=== PATIENT | female | born 1980 | race Caucasian/White ===

== ENCOUNTER 2017-08-21 21:02 | Emergency (ER) | payer OTHER ==
[2017-08-21] MEDS: MORPHINE SULFATE 2 MG/ML INJ IM (22:26)
== END 2017-08-21 23:05 | disposition home or self-care (01) ==
LOC: NEPD 21:02
DX: S42.301A Unspecified fracture of shaft of humerus, right arm, initial encounter for closed fracture (principal); J45.909 Unspecified asthma, uncomplicated; Z86.718 Personal history of other venous thrombosis and embolism
CPT/HCPCS: 73060; 96372; 99284-25

== ENCOUNTER 2017-08-29 05:07 | Observation (INO) | payer OTHER ==
[~2017-08-29] VITALS: Ht 160 cm; Wt 83.5 kg
[~2017-08-29 05:07] MED LIST: HYDR-3516 PO; IBUP1TAB5 PO
[2017-08-29] MEDS ORDERED: ceFAZolin 2 GM PREMIX 50 ML IV SCH (05:45)
[2017-08-29] MEDS ORDERED: VANCOMYCIN 1000 MG/NS 250 ML (for <70 kg) IV SCH ×2 (05:45)
[2017-08-29] MEDS ORDERED: CHLORHEXIDINE GLUCONATE 4% SOLN 120 ML BTL TOPICAL SCH (05:45)
[2017-08-29] MEDS ORDERED: POVIDONE IODINE 5% (ANTISEPSIS KIT) 4 APPLICATIONS EACH NARE PRN (05:45)
[2017-08-29] MEDS ORDERED: LACTATED RINGER'S 1000 ML IV PRN (05:45)
[2017-08-29] MEDS ORDERED: CHLORHEXIDINE GLUCONATE 2 % 1 PACK (2 CLOTHS) TOPICAL PRN (05:45)
[2017-08-29] MEDS ORDERED: SODIUM CHLORID 0.9% 500 ML IV PRN (05:45)
[2017-08-29] MEDS ORDERED: METOPROLOL TARTRATE 25 MG TAB PO PRN (05:45)
[2017-08-29] MEDS ORDERED: MORPHINE SULFATE 4 MG/ML INJ ONE (07:19)
[2017-08-29] MEDS ORDERED: GENTAMICIN SULFATE 80 MG/2 ML VIAL ONE (08:00)
[2017-08-29] MEDS ORDERED: HYDR-3583 PO (08:20)
[2017-08-29] MEDS ORDERED: ERGOCALCIFEROL (VIT D2) 50,000 UNIT CAP PO SCH (10:00)
[2017-08-29] MEDS ORDERED: diphenhydrAMINE HCL 25 MG CAP PO PRN (10:00)
[2017-08-29] MEDS ORDERED: MORPHINE SULFATE 4 MG/ML INJ IV PUSH PRN (10:00)
[2017-08-29] MEDS ORDERED: ONDANSETRON HCL 4 MG/2 ML VIAL IVP PRN (10:00)
--- NOTE | 2017-08-29 10:03 | PD.OP ---
cc: Ulises Nova MD Operative Report Date of Surgery: Aug 29, 2017 Preoperative Diagnosis: Displaced right humerus distal shaft fracture Postoperative Diagnosis: Procedure: Open reduction internal fixation right distal humerus shaft fracture Anesthesia: Gen. Surgeon: Ulises Nova Spinning Machine Operator(s): SHAREE Mojica PA-C The surgical procedure was assisted by my physician equal opportunity assistant. My P.A. presence was necessary throughout this case for the manipulation and positioning of the surgical extremity. My P.A. was assisting me throughout the duration of this procedure. The skill set of a physician equal opportunity assistant was medically necessary to complete this procedure. During the surgical case the surgical services asst was working at the back table and the physician equal opportunity assistant was directly assisting me. Operation and Findings: Patient was seen and evaluated preoperatively. Treatment options were discussed regarding right humerus fracture including surgical and nonsurgical treatments. After detailed discussion of risk and benefits of procedure patient wishes to proceed with surgery. Risks of surgery include bleeding, infection, nonunion, malunion, radial nerve injury, painful hardware, loss of motion of shoulder and elbow, weakness and numbness of arm, as well as medical competitions including blood clots stroke and . Patient was brought to operating room and placed on the OR table. GETA was administered by anesthesiologist. Patient was positioned in lateral decubitus position. Extremities were well-padded. Axillary roll was placed. Operative arm and shoulder were prepped with alcohol followed by Hibiclens and draped usual sterile fashion. Timeout procedure was performed. IV antibiotics were given prior to incision. A standard posterior approach was utilized. Subcutaneous tissues was dissected with Bovie. The triceps muscle was split midline. Distally the lateral border of the triceps was elevated. The radial nerve was identified and protected throughout the procedure. The nerve was intact. The fracture was identified. Soft tissue was removed from the fracture site. Fracture site was cleaned with curettes. At this point the fracture was reduced using fracture tenaculums. Multiplanar fluoroscopy confirmed excellent of fracture. There were 3 large fragments. Each piece keyed together well. Multiple 2.7 cortical lag screws were placed to compress the fracture fragments. A Synthes 3.5 plate was contoured to fit the humerus. Plate was provisionally held the bone with K wires. 3.5 cortical screws were placed on each side of the fracture. The screws were placed to add compression to fracture. Multiple screws were placed in each side of the fracture. All screws were predrilled and premeasured for appropriate length. Final fluoroscopy revealed excellent alignment of fracture with well-placed hardware. Incision was thoroughly irrigated. Fascia was closed with #1 Vicryl, subcutaneous tissues closed with 3-0 Vicryl, and skin was closed with antonio. Sterile dressings were applied. Needle and sponge counts were correct. Patient was placed into a sling, and then transferred to recovery room in stable condition Ulises Nova MD Aug 29, 2017 10:03
[2017-08-29] MEDS ORDERED: DO NOT ADM ANY ANTICOAGULANT DRUGS PRN (10:28)
[2017-08-29] MEDS ORDERED: MIDAZOLAM HCL 2 MG/2 ML VIAL ONE (10:29)
[2017-08-29] MEDS ORDERED: *morphine SULFATE 10 MG/ML PERIprocedure ONLY ONE (10:34)
[2017-08-29] MEDS ORDERED: HYDROmorphone HCL PF 2 MG/ML VIAL ONE (10:54)
[2017-08-29 12:00] VITALS: BP 139/72; PULSE 76; RESP 18; TEMP 95.5; O2SAT 100
[2017-08-29] MEDS ORDERED: PROPOFOL 200 MG/20 ML AMP IV ONE (12:00)
[2017-08-29] MEDS ORDERED: ROCURONIUM INJ 50 MG/5 ML SYRINGE IV PUSH ONE (12:00)
[2017-08-29] MEDS ORDERED: ONDANSETRON HCL 4 MG/2 ML VIAL IV ONE (12:00)
[2017-08-29] MEDS ORDERED: LIDOCAINE HCL 1% PF 5 ML SYRINGE OTHER ONE (12:00)
[2017-08-29] MEDS ORDERED: DEXAMETHASONE SOD PHOS 4 MG/ML VIAL IV ONE (12:00)
[2017-08-29] MEDS ORDERED: ESMOLOL HCL 100 MG/10 ML VIAL IV ONE (12:00)
[2017-08-29] MEDS ORDERED: LACTATED RINGER'S 1000 ML INJ 2,000 ML IV ONE (12:00)
[2017-08-29] MEDS: ACETAMINOPHEN/HYDROcodone 325 MG/10 MG TAB PO PRN ×3 (12:22→18:27)
[2017-08-29] MEDS: CALCIUM/VITAMIN D 250 MG/125 U TAB PO SCH ×2 (12:22→15:38)
--- NOTE | 2017-08-29 15:17 | RADRPT ---
EXAM DATE/TIME: 08/29/2017 09:44 [facility] COMPARISON: HUMERUS RIGHT (MIN 2VWS), August 21, 2017, 22:10. INDICATIONS : Right humerus open reduction internal fixation. MEDICAL HISTORY : None. SURGICAL HISTORY : None. ENCOUNTER: Initial ACUITY: 1 day PAIN SCORE: Non-responsive. LOCATION: Right humerus FINDINGS: 5 magnified C-arm spot views are centered over the humerus and labeled right. These show an orthopedi c plate with multiple anchoring screws along the dorsal cortex of the mid and distal humerus. Good al ignment of the fracture of the mid to distal diaphysis is observed. The anchoring screws involving th e capitellum are contained within the cortical confines of the capitellum. CONCLUSION: Intraoperative images as detailed above. Turner Blankenship Jr., MD on August 29, 2017 at 15:12 Board Certified Radiologist. This report was verified electronically.
[2017-08-29] MEDS: ceFAZolin 2 GM PREMIX 50 ML IV SCH (15:38)
[2017-08-29 15:39] VITALS: BP 137/87; PULSE 92; RESP 17; TEMP 97.3; O2SAT 98
[2017-08-29 17:45] VITALS: O2SAT 98
[2017-08-29 20:30] VITALS: BP 117/76; PULSE 96; RESP 17; TEMP 97.8; O2SAT 97
[2017-08-29] MEDS: DOCUSATE SODIUM 50 MG/SENNA 8.6 MG TAB PO SCH (21:00)
[2017-08-30] MEDS: ceFAZolin 2 GM PREMIX 50 ML IV SCH ×2 (00:07→09:24)
[2017-08-30] MEDS: ACETAMINOPHEN/HYDROcodone 325 MG/10 MG TAB PO PRN ×4 (00:07→15:05)
[2017-08-30 00:32] VITALS: BP 118/64; PULSE 100; RESP 17; TEMP 98.2; O2SAT 97
[2017-08-30 04:15] VITALS: BP 124/79; PULSE 91; RESP 16; TEMP 97.3; O2SAT 100
--- NOTE | 2017-08-30 06:33 | PD.ORT.PN ---
Subjective Subjective Remarks POD 1 s/p ORIF right distal humeral shaft fx doing well. reports pain but controlled. out of bed and ambulating to bathroom with minimal difficulty Objective Vitals Vital Signs Date Time Temp Pulse Resp B/P (MAP) Pulse Ox O2 Delivery O2 Flow Rate FiO2 08/30/17 04:15 97.3 91 16 124/79 (94) 100 08/30/17 00:32 98.2 100 17 118/64 (82) 97 08/29/17 20:30 97.8 96 17 117/76 (90) 97 08/29/17 17:45 98 21 08/29/17 15:39 97.3 92 17 137/87 (104) 98 08/29/17 12:00 95.5 76 18 139/72 (94) 100 08/29/17 11:45 77 12 128/77 (94) 97 Room Air 08/29/17 11:30 79 12 129/75 (93) 98 Room Air 08/29/17 11:15 71 12 125/74 (91) 97 Room Air 08/29/17 11:00 76 15 121/67 (85) 97 Room Air 08/29/17 10:45 81 15 131/76 (94) 97 Room Air 08/29/17 10:30 83 14 129/78 (95) 95 Room Air 08/29/17 10:27 97.5 93 16 130/77 (94) 100 Room Air I/O 08/29/17 08/29/17 08/29/17 08/30/17 08/30/17 08/30/17 07:00 15:00 23:00 07:00 15:00 23:00 Intake Total 2000 ml 770 ml Output Total 100 ml Balance 1900 ml 770 ml Intake Oral 720 ml IV Total 2000 ml 50 ml Output Estimated Blood Loss 100 ml # Voids 2 # Bowel Movements 0 Objective Remarks RUE: dressings clean and dry. intact. NVI with good extension fo wrist/fingers. full sensation to median/ulnar nerve distribution Assessment & Plan Assessment and Plan 1) Right Distal Humeral Shaft Fx s/p ORIF - POD 1 -NWB -maintain sling -pendulums 3x/day -daily dressing changes POD 2 -CM for HHC -plan for DC home today with HHC -f/u with Rud[facility] or PA in 2 weeks Nathaniel Lorenz/[employer] PA Aug 30, 2017 06:33
[2017-08-30] MEDS ORDERED: VITA500012 PO (06:34)
[2017-08-30] MEDS ORDERED: CALCTAB19 PO (06:34)
[2017-08-30] MEDS ORDERED: VITA2000 PO (06:34)
--- NOTE | 2017-08-30 06:36 | HHI.FF ---
Face to Face Verification Diagnosis: (1) Fracture, humerus closed, shaft Occupational Therapy Right UE Weight Bearing: Non WB Right UE Range of Motion: Pendular Nursing Nursing: Dressing changes (teach and supply dressing changes) Dressing Changes: Daily dressing change, Xeroform, Coverderm/Primapore I have seen patient Treasure Nagy on 08/30/17. My clinical findings support the need for the requested home health care services because: Ltd mobility - disease progression I certify that my clinical findings support that this patient is homebound because: Post-op weakness Nathaniel Lorenz/First Hemant WESLEY Aug 30, 2017 06:36
--- NOTE | 2017-08-30 06:40 | HHI.DS ---
Discharge Summary Admission Date Aug 29, 2017 at 09:56 Discharge Date: Aug 30, 2017 Admitting Diagnosis Right Distal Humeral Shaft Fx Diagnosis: (1) Fracture, humerus closed, shaft Diagnosis: Principal ICD Codes: S42.309A - Unspecified fracture of shaft of humerus, unspecified arm , initial encounter for closed fracture Procedures ORIF Right Distal Humeral Shaft PE at Discharge RUE: dressings clean and dry. intact. NVI with good extension fo wrist/fingers. full sensation to median/ulnar nerve distribution Hospital Course Patient admitted from outpatient for ORIF of right humerus after suffering a fracture of right humerus approx 1 week ago. Tolerated procedure well. Admitted to N. Was out of bed POD0 and ambulating to bathroom with minimal discomfort. Pain controlled with norco. POD 1 patient was hemodynamically stable, neruo intact, pain controlled, and fit for discharge home with home healthcare. She will remain NWB on right arm. She will come out of sling 3x/ day for pendular exercises. She will have daily dressing changes with xeroform and primapore. she will follow up with Lexi or [facility] in 2 weeks. Pt Condition on Discharge: Good Discharge Disposition: Disch w/ Home Health Serv Discharge Instructions Diet Instructions: As Tolerated, No Restrictions Activities You Can Perform: Non Weight Bearing Follow up Referrals: Appointment for Follow Up - 2 Weeks @ [facility] with [facility] - 2 Weeks @ [facility] with Ulises Galdamez MD New Medications: Calcium Carbonate-Vitamin D (Calcium 600+D 200) 600-200 Mg-Unit Tab 1 TAB PO BID for Nutritional Supplement, #60 TAB 0 Refills Cholecalciferol (Vitamin D3) 2,000 Unit Cap 2000 UNITS PO DAILY for Nutritional Supplement, #60 CAP 0 Refills Ergocalciferol (Ergocalciferol) 50,000 Unit Cap 10088 UNITS PO Q7D for Nutritional Supplement, #8 CAP Hydrocodone-Acetaminophen (Hydrocodone-Acetaminophen) 10-325 mg Tab 1 TAB PO Q4H PRN for PAIN, #60 TAB 0 Refills Discontinued Medications: Hydrocodone-Acetaminophen (Hydrocodone-Acetaminophen) 5-325 mg Tab 1 TAB PO Q6H PRN for PAIN, #20 TAB 0 Refills Ibuprofen (Ibuprofen) 400 Mg Tab 400 MG PO Q8H PRN for PAIN SCALE 1 TO 10, TAB 0 Refills Nathaniel Lorenz/[employer] PA Aug 30, 2017 06:40
[2017-08-30 08:00] VITALS: BP 111/67; PULSE 89; RESP 18; TEMP 98.1; O2SAT 99
[2017-08-30] MEDS ORDERED: CHOLECALCIFEROL (VIT D3) 1000 UNIT TAB PO SCH (09:00)
[2017-08-30] MEDS: CALCIUM/VITAMIN D 250 MG/125 U TAB PO SCH ×2 (09:25→15:05)
[2017-08-30] MEDS: DOCUSATE SODIUM 50 MG/SENNA 8.6 MG TAB PO SCH (09:25)
[2017-08-30] MEDS ORDERED: INFLUENZA VIRUS VACCINE (QUADRIVALENT) 0.5 ML SYR IM ONE (10:00)
[2017-08-30 10:19] VITALS: O2SAT 99
[2017-08-30 11:51] VITALS: BP 114/68; PULSE 87; RESP 18; TEMP 98.1; O2SAT 98
== END 2017-08-30 16:41 | disposition home or self-care (01) ==
LOC: HSDC 05:07 → N06A 09:56
PROVIDERS: ADMIT Orthopaedic Surgery Orthopaedic Trauma; ATTEND Orthopaedic Surgery Orthopaedic Trauma
DX: S42.301A Unspecified fracture of shaft of humerus, right arm, initial encounter for closed fracture (principal); Z23 Encounter for immunization
CPT/HCPCS: 01740; 24515; 73060; 76000; 90471; 90686; 96365; 96366; 97110; 97166; C1713; G0378; G8987; G8988; J0690; J1100; J1170; J1580; J2250; J2270; J2405; J3010; J3370; J7050; J7120; G0008; Q2038

== ENCOUNTER 2017-10-06 16:52 | Emergency (ER) | payer OTHER ==
[~2017-10-06 16:52] MED LIST changes: +CALCTAB19 PO; -HYDR-3516 PO; +HYDR-3583 PO; -IBUP1TAB5 PO; +VITA2000 PO; +VITA500012 PO
[2017-10-06 17:21] VITALS: BP 111/54; PULSE 77; RESP 18; TEMP 98.4
--- NOTE | 2017-10-06 18:38 | PD ---
HPI Chief Complaint: Pain: Acute or Chronic Time Seen by Provider: 17:58 Travel History International Travel<30 days: No Contact w/Intl Traveler<30days: No Traveled to known affect area: No History of Present Illness HPI This is a 37-year-old female here with right upper extremity pain. Patient had ORIF of the right humerus done by Dr. Nova in late August of this year. She recently returned to work last week and has been unable to wear the sling as directed. She is requesting a note for work stating that she must wear the sling as directed by Dr. Nova. She does have a follow-up appointment with her orthopedics next week. She denies fever or chills. She denies increasing pain, swelling or altered sensation of the extremity. She believes the heavy lifting and repetitive motion is not good for her arm. Didn't severity mild to moderate. Aggravated by range of motion and heavy lifting. Relieved with rest. PFSH Past Medical History Asthma: Yes Blood Disorders: Yes (DVT IN LEFT LEG 2005) Anxiety: Yes Depression: Yes Heart Rhythm Problems: No Cancer: No Cardiovascular Problems: No High Cholesterol: No Chemotherapy: No Chest Pain: No Congestive Heart Failure: No COPD: No Diabetes: No Deep Vein Thrombosis: Yes Endocrine: No Genitourinary: No Hepatitis: No Hiatal Hernia: No Immune Disorder: No Musculoskeletal: Yes (CHRONIC LUMBAR PAIN L4-5, c3-c7, OA) Neurologic: No Psychiatric: Yes Reproductive: No Respiratory: Yes (ASTHMA) Radiation Therapy: No Sleep Apnea: No Thyroid Disease: No : 1 Para: 1 Tubal Ligation: Yes Past Surgical History AICD: No Body Medical Devices: CURRENT SX ORIF R HUMERUS Gynecologic Surgery: Yes (TUBAL LIGATION) Joint Replacement: No Pacemaker: No Social History Alcohol Use: No Tobacco Use: Yes ("ONCE IN A BLUE [place]AMAN") Substance Use: No Allergies-Medications (Allergen,Severity, Reaction): Coded Allergies: No Known Allergies (Verified Allergy, Unknown, 10/06/17) Reported Meds & Prescriptions Reported Meds & Active Scripts Active Calcium 600+D 200 (Calcium Carbonate-Vitamin D) 600-200 Mg-Unit Tab 1 Tab PO BID Vitamin D3 (Cholecalciferol) 2,000 Unit Cap 2,000 Units PO DAILY Ergocalciferol 50,000 Unit Cap 50,000 Units PO Q7D Hydrocodone-Acetaminophen 10-325 mg Tab 1 Tab PO Q4H PRN Review of Systems Except as stated in HPI: all other systems reviewed are Neg General / Constitutional: No: Fever Physical Exam Narrative GENERAL: Alert and well-appearing 37-year-old SKIN: Warm and dry. HEAD: Normocephalic. EYES: No injection or drainage. NECK: Supple MUSCULOSKELETAL: No cyanosis, or edema. Right upper extremity: Well-healed surgical scar extending the length of the humerus. No warmth, erythema, swelling of the extremity. Patient can flex and extend the elbow and wrist. 2 + brachial and radial pulse. Normal sensation in the hand. Brisk cap refill. Data Data Last Documented VS Vital Signs Date Time Temp Pulse Resp B/P (MAP) Pulse Ox O2 Delivery O2 Flow Rate FiO2 10/06/17 17:21 98.4 77 18 111/54 (73) MDM Medical Decision Making Medical Screen Exam Complete: Yes Emergency Medical Condition: Yes Differential Diagnosis Postsurgical pain, post surgical infection unlikely, humeral fracture Narrative Course This is a 37-year-old female here with continued pain in the right upper extremity status post ORIF of the humerus in late August. Denies recent injury or trauma. She returned to work this week and reports that range of motion and heavy lifting have aggravated the pain in the arm. She denies fever chills. There is no evidence of infection or DVT in the right upper extremity. She is not currently wearing the sling as directed by Dr. Nova. She was encouraged to wear the sling. Continue OTC NSAIDs. Keep her follow-up appointment with Dr. Nova. She'll be given a work note stating she needs to wear the sling as directed by her orthopedist Diagnosis Primary Impression: Fracture, humerus closed, shaft Qualified Codes: S42.301D - Unspecified fracture of shaft of humerus, right arm, subsequent encounter for fracture with routine healing Referrals: Ulises Nova MD Departure Forms: Tests/Procedures, Work Release Special Instructions: Must wear sling at all times until cleared by orthopedic Additional Instructions: With a sling as directed. [id number] ibuprofen and Tylenol. Keep your follow-up appointment with Dr. Nova. And if he had new or worsening symptoms Disposition: DISCHARGE HOME Condition: Stable Renu Bryant Oct 06, 2017 18:38
[2017-10-06] MEDS ORDERED: KETOROLAC TROMETHAMINE 60 MG/2 ML (IM) VIAL IM ONE (18:45)
== END 2017-10-06 19:08 | disposition home or self-care (01) ==
LOC: NEPK 16:52
DX: M79.601 Pain in right arm (principal); S42.301D Unspecified fracture of shaft of humerus, right arm, subsequent encounter for fracture with routine healing; X58.XXXD Exposure to other specified factors, subsequent encounter; J45.909 Unspecified asthma, uncomplicated; Z72.0 Tobacco use; Z02.79 Encounter for issue of other medical certificate
CPT/HCPCS: 96372; 99283; J1885

== ENCOUNTER 2017-11-16 01:14 | Emergency (ER) | payer OTHER ==
[~2017-11-16] VITALS: Ht 157.5 cm; Wt 82.0 kg
[2017-11-16 01:27] VITALS: BP 134/76; PULSE 97; RESP 18; TEMP 98.5; O2SAT 100
--- NOTE | 2017-11-16 02:40 | RADRPT ---
EXAM DATE/TIME: 11/16/2017 02:15 [facility] COMPARISON: No previous studies available for comparison. INDICATIONS : Left hand pain and swelling with no known injury. MEDICAL HISTORY : None. SURGICAL HISTORY : ORIF rt humerus ENCOUNTER: Initial ACUITY: 2 days PAIN SCORE: 10/10 LOCATION: Left hand FINDINGS: Three view examination of the left hand demonstrates no soft tissue swelling, dislocation, or fractur e. The carpal bones appear intact. The interphalangeal and metacarpophalangeal joints are intact. Bony mineralization is normal. CONCLUSION: 1. There is no evidence of acute fracture. Derrick Mirza MD on November 16, 2017 at 2:38 Board Certified Radiologist. This report was verified electronically.
[2017-11-16] MEDS ORDERED: CEPH-460 PO (03:06)
[2017-11-16] MEDS ORDERED: BACT800T5 PO (03:06)
--- NOTE | 2017-11-16 03:06 | PD ---
HPI Chief Complaint: Injury Time Seen by Provider: 02:35 Travel History International Travel<30 days: No Contact w/Intl Traveler<30days: No Traveled to known affect area: No History of Present Illness HPI 37-year-old female complains of pain in the left hand for about 3 nights. She reports no real relief from ice packs or heat packs. No benefit from 400 mg ibuprofen. Sleeping has been difficult because of the hand pain. No fever. 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 PFSH Past Medical History Asthma: Yes Blood Disorders: Yes (DVT IN LEFT LEG 2005) Anxiety: Yes Depression: Yes Heart Rhythm Problems: No Cancer: No Cardiovascular Problems: No High Cholesterol: No Chemotherapy: No Chest Pain: No Congestive Heart Failure: No COPD: No Diabetes: No Diminished Hearing: No Deep Vein Thrombosis: Yes (DVT IN LEFT LEG 2005) Endocrine: No Gastrointestinal Disorders: No Genitourinary: No Hepatitis: No Hiatal Hernia: No Hypertension: No Immune Disorder: No Implanted Vascular Access Dvce: Yes Medical other: Yes (previous dvt l leg) Musculoskeletal: Yes (CHRONIC LUMBAR PAIN L4-5, c3-c7, OA) Neurologic: No Psychiatric: Yes Reproductive: No Respiratory: Yes (ASTHMA) Radiation Therapy: No Sleep Apnea: No Thyroid Disease: No Tetanus Vaccination: < 5 Years Influenza Vaccination: Yes ?: Not LMP: 11/11/2017 : 1 Para: 1 Tubal Ligation: Yes Past Surgical History AICD: No Body Medical Devices: CURRENT SX ORIF R HUMERUS Gynecologic Surgery: Yes (TUBAL LIGATION) Joint Replacement: No Pacemaker: No Other Surgery: Yes (TUBAL LIGATION, CURRENT SX ORIF R HUMERUS) Social History Alcohol Use: No Tobacco Use: No Substance Use: No Allergies-Medications (Allergen,Severity, Reaction): Coded Allergies: No Known Allergies (Verified Allergy, Unknown, 11/16/17) Reported Meds & Prescriptions Reported Meds & Active Scripts Active Calcium 600+D 200 (Calcium Carbonate-Vitamin D) 600-200 Mg-Unit Tab 1 Tab PO BID Vitamin D3 (Cholecalciferol) 2,000 Unit Cap 2,000 Units PO DAILY Ergocalciferol 50,000 Unit Cap 50,000 Units PO Q7D Hydrocodone-Acetaminophen 10-325 mg Tab 1 Tab PO Q4H PRN Review of Systems General / Constitutional: No: Fever HENT: No: Sore Throat Respiratory: No: Sneezing Gastrointestinal: No: Vomiting Physical Exam Narrative GENERAL: 37-year-old female well-nourished well-developed mild to moderate distress Vital Signs Date Time Temp Pulse Resp B/P (MAP) Pulse Ox O2 Delivery O2 Flow Rate FiO2 11/16/17 01:27 98.5 97 18 134/76 (95) 100 SKIN: Warm and dry. HEAD: Atraumatic. Normocephalic. EYES: Pupils equal and round. No scleral icterus. No injection or drainage. ENT: No nasal bleeding or discharge. Mucous membranes pink and moist. NECK: Trachea midline. No JVD. CARDIOVASCULAR: Regular rate and rhythm. RESPIRATORY: No accessory muscle use. Clear to auscultation. Breath sounds equal bilaterally. GASTROINTESTINAL: Abdomen soft, non-tender, nondistended. Hepatic and splenic margins not palpable. MUSCULOSKELETAL: Swelling erythema warmth about the dorsal aspect of the left hand. No fluctuance. NEUROLOGICAL: Awake and alert. No obvious cranial nerve deficits. Motor grossly within normal limits. Five out of 5 muscle strength in the arms and legs. Normal speech. PSYCHIATRIC: Appropriate mood and affect; insight and judgment normal. Data Data Last Documented VS Vital Signs Date Time Temp Pulse Resp B/P (MAP) Pulse Ox O2 Delivery O2 Flow Rate FiO2 11/16/17 01:27 98.5 97 18 134/76 (95) 100 Orders Orders Ice/Cold Pack (11/16/17 01:48) Hand, Complete ([id number]) (11/16/17 01:48) Cephalexin (Keflex) (11/16/17 03:15) Sulfamet-Trimeth Ds 800-160 Mg (Bactrim (11/16/17 03:15) MDM Medical Decision Making Medical Screen Exam Complete: Yes Emergency Medical Condition: Yes Medical Record Reviewed: Yes Differential Diagnosis Cellulitis, abscess, dermatitis, osteomyelitis Narrative Course Patient has cellulitis. Prescription as below. Diagnosis Primary Impression: Cellulitis Qualified Codes: L03.114 - Cellulitis of left upper limb Referrals: Primary Care Physician call for appointment Med/Other Pt SpecificInfo: Prescription(s) given Scripts Cephalexin (Keflex) 500 Mg Cap 500 MG PO Q8H for Infection, #30 CAP 0 Refills Prov: Gilmer Anderson MD 11/16/17 Sulfamethoxazole-Trimethoprim (Bactrim DS) 800-160 Mg Tab 1 TAB PO BID for Infection, #20 TAB 0 Refills Prov: Gilmer Anderson MD 11/16/17 Disposition: 01 DISCHARGE HOME Condition: Stable Gilmer Anderson MD Nov 16, 2017 03:06
[2017-11-16] MEDS ORDERED: SULFAMETHOXAZOLE-TRIMETHOPRIM DS 800-160 MG TAB PO ONE (03:15)
[2017-11-16] MEDS ORDERED: CEPHALEXIN MONOHYDRATE 500 MG CAP PO ONE (03:15)
== END 2017-11-16 03:52 | disposition home or self-care (01) ==
LOC: NEPC 01:14
DX: L03.114 Cellulitis of left upper limb (principal); J45.909 Unspecified asthma, uncomplicated; F41.9 Anxiety disorder, unspecified; F32.9 Major depressive disorder, single episode, unspecified; Z86.718 Personal history of other venous thrombosis and embolism
CPT/HCPCS: 73130; 99283